=== PATIENT | male | born 1965 | race Two or more races ===

== ENCOUNTER 2018-03-07 09:48 | Outpatient (CLI) | payer OTHER | END 2018-03-07 09:55 | disposition home or self-care (01) | LOC: SONOGRAMA 09:48 | DX: E03.8 Other specified hypothyroidism (principal) ==

== ENCOUNTER 2018-03-17 08:54 | Outpatient (CLI) | payer OTHER | END 2018-03-17 09:28 | disposition home or self-care (01) | LOC: LAB 08:54 | DX: E03.8 Other specified hypothyroidism (principal) ==

== ENCOUNTER → 2018-06-16 08:45 | Outpatient (CLI) | payer OTHER | END | disposition home or self-care (01) | LOC: LAB 08:45 | DX: E03.8 Other specified hypothyroidism (principal) ==

== ENCOUNTER 2018-10-13 11:37 | Outpatient (CLI) | payer OTHER | END 2018-10-13 11:57 | disposition home or self-care (01) | LOC: LAB 11:37 | DX: E11.65 Type 2 diabetes mellitus with hyperglycemia (principal); N39.0 Urinary tract infection, site not specified ==

== ENCOUNTER 2018-11-24 08:06 | Outpatient (CLI) | payer OTHER | END 2018-11-24 09:05 | disposition home or self-care (01) | LOC: LAB 08:06 | DX: E03.8 Other specified hypothyroidism (principal); E11.69 Type 2 diabetes mellitus with other specified complication; E78.3 Hyperchylomicronemia ==

== ENCOUNTER 2019-06-15 08:47 | Outpatient (CLI) | payer OTHER | END 2019-06-15 08:59 | disposition home or self-care (01) | LOC: LAB 08:47 | DX: E03.8 Other specified hypothyroidism (principal); E78.2 Mixed hyperlipidemia; E11.65 Type 2 diabetes mellitus with hyperglycemia ==

== ENCOUNTER 2019-08-31 08:42 | Outpatient (CLI) | payer OTHER | END 2019-08-31 08:57 | disposition home or self-care (01) | LOC: LAB 08:42 | DX: E11.21 Type 2 diabetes mellitus with diabetic nephropathy (principal); E11.65 Type 2 diabetes mellitus with hyperglycemia; E03.8 Other specified hypothyroidism ==

== ENCOUNTER 2019-11-18 10:42 | Outpatient (CLI) | payer OTHER | END 2019-11-18 10:50 | disposition home or self-care (01) | LOC: LAB 10:42 | DX: N39.0 Urinary tract infection, site not specified (principal); E78.2 Mixed hyperlipidemia; E11.9 Type 2 diabetes mellitus without complications; E11.65 Type 2 diabetes mellitus with hyperglycemia; E03.8 Other specified hypothyroidism ==

== ENCOUNTER → 2020-06-12 | Outpatient (CLI) | payer OTHER | END | disposition home or self-care (01) | LOC: LAB 11:08 | PROVIDERS: ATTEND Specialist | DX: E11.65 Type 2 diabetes mellitus with hyperglycemia (principal); E11.21 Type 2 diabetes mellitus with diabetic nephropathy; E78.2 Mixed hyperlipidemia; N40.1 Benign prostatic hyperplasia with lower urinary tract symptoms ==

== ENCOUNTER → 2020-09-12 10:20 | Outpatient (CLI) | payer OTHER | END | disposition home or self-care (01) | LOC: LAB 10:20 | PROVIDERS: ATTEND Specialist | DX: E03.8 Other specified hypothyroidism (principal); D64.89 Other specified anemias; E78.2 Mixed hyperlipidemia ==

== ENCOUNTER 2020-11-30 11:03 | Outpatient (CLI) | payer OTHER | END 2020-11-30 11:16 | disposition home or self-care (01) | LOC: LAB 11:03 | PROVIDERS: ATTEND Specialist | DX: E11.65 Type 2 diabetes mellitus with hyperglycemia (principal); D64.89 Other specified anemias; E78.2 Mixed hyperlipidemia; E03.8 Other specified hypothyroidism; D68.8 Other specified coagulation defects; E11.21 Type 2 diabetes mellitus with diabetic nephropathy; N39.0 Urinary tract infection, site not specified ==

== ENCOUNTER 2021-02-03 11:01 | Emergency (ER) | payer OTHER ==
[~2021-02-03] VITALS: Ht 180.3 cm; Wt 116.1 kg
[2021-02-03] MEDS ORDERED: SYNTHROID75 MCG PO (11:25)
[2021-02-03] MEDS ORDERED: TOPROL XL25 M1 PO (11:25)
[2021-02-03] MEDS ORDERED: MEDROLPACK PO (14:47)
[2021-02-03] MEDS ORDERED: CLEOCIN HCL300 MG PO (14:47)
== END 2021-02-03 14:53 | disposition home or self-care (01) ==
LOC: ER 11:01
DX: G51.0 Bell's palsy (principal)

== ENCOUNTER → 2021-02-10 12:18 | Outpatient (CLI) | payer OTHER ==
[~2021-02-10 12:18] MED LIST: CLEOCIN HCL300 MG PO; MEDROLPACK PO; SYNTHROID75 MCG PO; TOPROL XL25 M1 PO
== END | disposition home or self-care (01) ==
LOC: LAB 12:18
PROVIDERS: ATTEND Physical Medicine & Rehabilitation
DX: R05 Cough (principal); R50.9 Fever, unspecified; R06.1 Stridor; R06.02 Shortness of breath; M35.89 Other specified systemic involvement of connective tissue; M35.81 Multisystem inflammatory syndrome; J12.82 Pneumonia due to coronavirus disease 2019; Z11.52 Encounter for screening for COVID-19; Z20.822 Contact with and (suspected) exposure to COVID-19; Z03.818 Encounter for observation for suspected exposure to other biological agents ruled out

== ENCOUNTER 2021-02-16 14:46 | Outpatient (CLI) | payer OTHER | END 2021-02-16 16:14 | disposition home or self-care (01) | LOC: OFIC 805 14:46 | PROVIDERS: ATTEND Otolaryngology Otology & Neurotology | DX: G83.89 Other specified paralytic syndromes (principal); I10 Essential (primary) hypertension ==

== ENCOUNTER 2021-02-17 12:50 | Outpatient (CLI) | payer OTHER | END 2021-02-17 13:07 | disposition home or self-care (01) | LOC: RAD 12:50 | PROVIDERS: ATTEND Specialist | DX: J45.998 Other asthma (principal) ==

== ENCOUNTER 2021-02-19 10:03 | Outpatient (CLI) | payer OTHER | END 2021-02-19 15:00 | disposition home or self-care (01) | LOC: LAB 10:03 | PROVIDERS: ATTEND Specialist | DX: E03.1 Congenital hypothyroidism without goiter (principal); E11.65 Type 2 diabetes mellitus with hyperglycemia; N40.1 Benign prostatic hyperplasia with lower urinary tract symptoms; D64.89 Other specified anemias; D68.8 Other specified coagulation defects; Z12.11 Encounter for screening for malignant neoplasm of colon ==

== ENCOUNTER 2021-02-20 11:08 | Outpatient (CLI) | payer OTHER | END 2021-02-20 15:00 | disposition home or self-care (01) | LOC: LAB 11:08 | PROVIDERS: ATTEND Specialist | DX: E03.1 Congenital hypothyroidism without goiter (principal); E11.65 Type 2 diabetes mellitus with hyperglycemia; N40.1 Benign prostatic hyperplasia with lower urinary tract symptoms; D64.89 Other specified anemias; D68.8 Other specified coagulation defects; Z12.11 Encounter for screening for malignant neoplasm of colon ==

== ENCOUNTER 2021-06-04 10:48 | Outpatient (CLI) | payer OTHER | END 2021-06-04 11:00 | disposition home or self-care (01) | LOC: LAB 10:48 | PROVIDERS: ATTEND Specialist | DX: E05.80 Other thyrotoxicosis without thyrotoxic crisis or storm (principal); E89.0 Postprocedural hypothyroidism; E11.65 Type 2 diabetes mellitus with hyperglycemia; E11.21 Type 2 diabetes mellitus with diabetic nephropathy ==

== ENCOUNTER 2021-09-18 10:50 | Outpatient (CLI) | payer OTHER | END 2021-09-18 10:54 | disposition home or self-care (01) | LOC: LAB 10:50 | PROVIDERS: ATTEND Specialist | DX: E11.65 Type 2 diabetes mellitus with hyperglycemia (principal); K75.81 Nonalcoholic steatohepatitis (NASH); E11.21 Type 2 diabetes mellitus with diabetic nephropathy; E78.2 Mixed hyperlipidemia ==

== ENCOUNTER 2021-10-22 07:17 | Outpatient (CLI) | payer OTHER | END 2021-10-22 07:18 | disposition home or self-care (01) | LOC: NUCLEAR 07:17 | PROVIDERS: ATTEND Internal Medicine Cardiovascular Disease | DX: I25.10 Atherosclerotic heart disease of native coronary artery without angina pectoris (principal); R07.89 Other chest pain; I50.1 Left ventricular failure, unspecified ==

== ENCOUNTER 2021-12-21 09:59 | Outpatient (CLI) | payer OTHER | END 2021-12-21 14:09 | disposition home or self-care (01) | LOC: LAB 09:59 | PROVIDERS: ATTEND Specialist | DX: E03.9 Hypothyroidism, unspecified (principal); E11.21 Type 2 diabetes mellitus with diabetic nephropathy; N39.0 Urinary tract infection, site not specified; N40.1 Benign prostatic hyperplasia with lower urinary tract symptoms; N40.0 Benign prostatic hyperplasia without lower urinary tract symptoms; E78.2 Mixed hyperlipidemia; E11.65 Type 2 diabetes mellitus with hyperglycemia; Z12.11 Encounter for screening for malignant neoplasm of colon; D64.9 Anemia, unspecified; I10 Essential (primary) hypertension; E11.9 Type 2 diabetes mellitus without complications ==

== ENCOUNTER 2021-12-24 10:26 | Outpatient (CLI) | payer OTHER | END 2021-12-24 10:27 | disposition home or self-care (01) | LOC: LAB 10:26 | PROVIDERS: ATTEND Specialist | DX: E03.9 Hypothyroidism, unspecified (principal); E11.21 Type 2 diabetes mellitus with diabetic nephropathy; N39.9 Disorder of urinary system, unspecified; N40.1 Benign prostatic hyperplasia with lower urinary tract symptoms; N40.0 Benign prostatic hyperplasia without lower urinary tract symptoms; E78.2 Mixed hyperlipidemia; E11.65 Type 2 diabetes mellitus with hyperglycemia; Z12.11 Encounter for screening for malignant neoplasm of colon; D64.9 Anemia, unspecified ==

== ENCOUNTER 2022-04-05 09:47 | Outpatient (CLI) | payer OTHER | END 2022-04-05 09:48 | disposition home or self-care (01) | LOC: LAB 09:47 | PROVIDERS: ATTEND Specialist | DX: E03.9 Hypothyroidism, unspecified (principal); E78.2 Mixed hyperlipidemia; E11.65 Type 2 diabetes mellitus with hyperglycemia; N25.81 Secondary hyperparathyroidism of renal origin; Z12.5 Encounter for screening for malignant neoplasm of prostate; I11.9 Hypertensive heart disease without heart failure; D50.9 Iron deficiency anemia, unspecified; Z12.11 Encounter for screening for malignant neoplasm of colon; E11.51 Type 2 diabetes mellitus with diabetic peripheral angiopathy without gangrene ==

== ENCOUNTER 2022-07-15 08:53 | Outpatient (CLI) | payer OTHER | END 2022-07-15 08:54 | disposition home or self-care (01) | LOC: LAB 08:53 | PROVIDERS: ATTEND Specialist | DX: E03.9 Hypothyroidism, unspecified (principal); D64.9 Anemia, unspecified; E11.65 Type 2 diabetes mellitus with hyperglycemia; E11.21 Type 2 diabetes mellitus with diabetic nephropathy; E78.2 Mixed hyperlipidemia; D55.0 Anemia due to glucose-6-phosphate dehydrogenase [G6PD] deficiency ==

== ENCOUNTER → 2022-12-10 09:23 | Outpatient (CLI) | payer OTHER | END | disposition home or self-care (01) | LOC: LAB 09:23 | PROVIDERS: ATTEND Specialist | DX: E03.9 Hypothyroidism, unspecified (principal); E11.21 Type 2 diabetes mellitus with diabetic nephropathy; N39.9 Disorder of urinary system, unspecified; E78.2 Mixed hyperlipidemia; E11.65 Type 2 diabetes mellitus with hyperglycemia; D64.9 Anemia, unspecified; K75.81 Nonalcoholic steatohepatitis (NASH); N25.81 Secondary hyperparathyroidism of renal origin ==

== ENCOUNTER 2023-04-07 07:45 | Outpatient (CLI) | payer OTHER | END 2023-04-07 07:50 | disposition home or self-care (01) | LOC: LAB 07:45 | PROVIDERS: ATTEND Specialist | DX: E11.21 Type 2 diabetes mellitus with diabetic nephropathy (principal); Z13.220 Encounter for screening for lipoid disorders; N39.9 Disorder of urinary system, unspecified; M00.89 Polyarthritis due to other bacteria; N25.81 Secondary hyperparathyroidism of renal origin; Z12.5 Encounter for screening for malignant neoplasm of prostate; D64.89 Other specified anemias; R07.89 Other chest pain; E11.69 Type 2 diabetes mellitus with other specified complication; E03.8 Other specified hypothyroidism ==

== ENCOUNTER → 2023-05-19 08:11 | Outpatient (CLI) | payer OTHER | END | disposition home or self-care (01) | LOC: NUCLEAR 08:00 | PROVIDERS: ATTEND Internal Medicine Cardiovascular Disease | DX: I35.0 Nonrheumatic aortic (valve) stenosis (principal); Q25.6 Stenosis of pulmonary artery; Q25.0 Patent ductus arteriosus ==

== ENCOUNTER → 2023-06-03 09:22 | Outpatient (CLI) | payer OTHER | END | disposition home or self-care (01) | LOC: LAB 09:22 | PROVIDERS: ATTEND Internal Medicine Endocrinology, Diabetes & Metabolism | DX: E03.8 Other specified hypothyroidism (principal) ==

== ENCOUNTER 2023-06-19 09:54 | Outpatient (CLI) | payer OTHER | END 2023-06-19 09:56 | disposition home or self-care (01) | LOC: LAB 09:54 | PROVIDERS: ATTEND Specialist | DX: R07.89 Other chest pain (principal); E03.8 Other specified hypothyroidism; E11.69 Type 2 diabetes mellitus with other specified complication; E11.21 Type 2 diabetes mellitus with diabetic nephropathy; N25.81 Secondary hyperparathyroidism of renal origin; Z13.220 Encounter for screening for lipoid disorders; N39.9 Disorder of urinary system, unspecified; D64.89 Other specified anemias ==

== ENCOUNTER 2023-09-14 09:29 | Outpatient (CLI) | payer OTHER ==
[2023-09-14 10:35] LABS: HEMATOCRIT 46.8 % (39.0-48.0); HEMOGLOBIN 15.6 g/dL (13-16.00); MEAN CELL VOLUME 80.1 fL (80.0-100.00); MEAN CORPUSCULAR HEMOGLOBIN 26.7 pg (27.00-32.0); MEAN CORPUSCULAR HGB CONC 33.3 g/dl (32.0-36.0); PLATELET COUNT 216 K/uL (150-450); RED BLOOD COUNT 5.84 M/uL (4.00-6.00); RED CELL DISTRIBUTION WIDTH 14.7 % (11.5-14.5)
[2023-09-14 11:10] LABS: ALBUMIN 4.2 gm/dL (3.4-5.0); ALKALINE PHOSPHATASE 70 U/L (50-136); ALT/SGPT 36 U/L (12-78); ANION GAP 11 (10.0-20.0); AST/SGOT 19 U/L (15-37); BILIRUBIN TOTAL 0.46 mg/dL (0.3-1.2); BLOOD UREA NITROGEN 15 mg/dL (7-18); BUN CREA RATIO 15 (7.0-25.0); CALCIUM 9.8 mg/dL (8.5-10.1); CARBON DIOXIDE 29 mEq/L (21-32); CHLORIDE 98 mmol/L (98-107); CHOL HDL RATIO 4.9 (0-5.0); CHOLESTEROL 178 mg/dL (0-200); FREE TRIODOTIRONINE 2.59 pg/ml (2.18-3.98); GFR 77.02; GLOBULINA 4.2 G/DL (2.4-3.5); HDL 36 mg/dl (40-60); POTASSIUM 3.52 mEq/L (3.5-5.1); SODIUM 134 mmol/L (136-145); TOTAL PROTEIN 8.4 gm/dL (6.4-8.2); TSH 0.519 uIU/mL (0.358-3.74)
[2023-09-14 11:16] LABS: C-REACTIVE PROTEIN < 0.29 MG/DL (0.00-0.29); GLUCOSE FASTING 208 mg/dL (65-100); LDL 78 mg/dl (0-130); OSMOLALITY SERUM 275 MOSM/KG (275-295); T4 FREE 1.48 NG/ML (0.76-1.46); VLDL 64 (0-39)
[2023-09-14 11:17] LABS: PH,URINE 5.5 (5.0-8.0); URINE APPEARANCE Clear; URINE BILIRRUBIN Negative (NEGATIVE); URINE BLOOD Negative; URINE COLOR Yellow; URINE LEUKOCYTE Negative; URINE NITRATE Negative; URINE PROTEIN Negative (NEGATIVE); URINE UROBILINOGEN 0.2 E.U./dl
[2023-09-14 11:18] LABS: URINE BACTERIA 8.8 uL (0.0-1933); URINE EPITHELIAL CELLS 2.6 uL (0.0-38.8)
[2023-09-14 11:42] LABS: URINE GLUCOSE >=1000 MG/DL (NEGATIVE); URINE RBC 0.7 uL (0.0-20.8); URINE WBC 0.7 uL (0.0-23.2)
[2023-09-14 12:13] LABS: TRIGLYCERIDES 321 mg/dL (0-150)
== END 2023-09-14 14:25 | disposition home or self-care (01) ==
LOC: LAB 09:29
PROVIDERS: ATTEND Specialist
DX: E11.21 Type 2 diabetes mellitus with diabetic nephropathy (principal); Z13.220 Encounter for screening for lipoid disorders; N25.81 Secondary hyperparathyroidism of renal origin; E11.69 Type 2 diabetes mellitus with other specified complication; E03.8 Other specified hypothyroidism; N39.9 Disorder of urinary system, unspecified; D64.89 Other specified anemias; M00.80 Arthritis due to other bacteria, unspecified joint

== ENCOUNTER → 2023-11-18 10:44 | Outpatient (CLI) | payer OTHER ==
[2023-11-18 12:26] LABS: URINE APPEARANCE Clear; URINE BILIRRUBIN Negative (NEGATIVE); URINE BLOOD Negative; URINE COLOR Yellow; URINE LEUKOCYTE Negative; URINE NITRATE Negative; URINE PROTEIN Negative (NEGATIVE); URINE UROBILINOGEN 0.2 E.U./dl
[2023-11-18 12:29] LABS: URINE BACTERIA 0 uL (0.0-1933); URINE EPITHELIAL CELLS 0.6 uL (0.0-38.8); URINE GLUCOSE >=1000 MG/DL (NEGATIVE); URINE RBC 0.7 uL (0.0-20.8); URINE WBC 0.9 uL (0.0-23.2)
[2023-11-18 12:39] LABS: HEMATOCRIT 44.4 % (39.0-48.0); HEMOGLOBIN 14.9 g/dL (13-16.00); MEAN CELL VOLUME 79.3 fL (80.0-100.00); MEAN CORPUSCULAR HEMOGLOBIN 26.6 pg (27.00-32.0); MEAN CORPUSCULAR HGB CONC 33.5 g/dl (32.0-36.0); PLATELET COUNT 213 K/uL (150-450); RED CELL DISTRIBUTION WIDTH 14.5 % (11.5-14.5)
[2023-11-18 13:12] LABS: ALBUMIN 4.2 gm/dL (3.4-5.0); ALKALINE PHOSPHATASE 58 U/L (50-136); ALT/SGPT 39 U/L (12-78); ANION GAP 9 (10.0-20.0); AST/SGOT 26 U/L (15-37); BILIRUBIN TOTAL 0.53 mg/dL (0.3-1.2); BILIRUBIN,CONJUGATED 0.13 mg/dL (0.0-0.2); BLOOD UREA NITROGEN 15 mg/dL (7-18); BUN CREA RATIO 17 (7.0-25.0); CALCIUM 10.1 mg/dL (8.5-10.1); CARBON DIOXIDE 32 mEq/L (21-32); CHLORIDE 98 mmol/L (98-107); CREATININE SERUM 0.88 mg/dL (0.70-1.30); FREE TRIODOTIRONINE 2.87 pg/ml (2.18-3.98); GFR 89.26; GLOBULINA 3.8 G/DL (2.4-3.5); GLUCOSE FASTING 185 mg/dL (65-100); OSMOLALITY SERUM 274 MOSM/KG (275-295); POTASSIUM 4.52 mEq/L (3.5-5.1); SODIUM 134 mmol/L (136-145)
[2023-11-18 13:32] LABS: C-REACTIVE PROTEIN < 0.29 MG/DL (0.00-0.29)
[2023-11-18 13:33] LABS: T4 FREE 1.65 NG/ML (0.76-1.46); TSH 0.086 uIU/mL (0.358-3.74)
== END | disposition home or self-care (01) ==
LOC: LAB 10:44
PROVIDERS: ATTEND Specialist
DX: E03.9 Hypothyroidism, unspecified (principal); E11.21 Type 2 diabetes mellitus with diabetic nephropathy; E11.65 Type 2 diabetes mellitus with hyperglycemia; D64.9 Anemia, unspecified; J45.998 Other asthma

== ENCOUNTER → 2024-03-30 09:07 | Outpatient (CLI) | payer OTHER ==
[2024-03-30 10:54] LABS: URINE APPEARANCE Clear; URINE BILIRRUBIN Negative (NEGATIVE); URINE BLOOD Negative; URINE COLOR Yellow; URINE LEUKOCYTE Negative; URINE NITRATE Negative; URINE PROTEIN Negative (NEGATIVE); URINE UROBILINOGEN 0.2 E.U./dl
[2024-03-30 10:58] LABS: URINE BACTERIA 6.2 uL (0.0-1933)
[2024-03-30 11:00] LABS: URINE EPITHELIAL CELLS 1.2 uL (0.0-38.8); URINE GLUCOSE >=1000 MG/DL (NEGATIVE); URINE RBC 0.1 uL (0.0-20.8); URINE WBC 0.9 uL (0.0-23.2)
[2024-03-30 11:49] LABS: HEMATOCRIT 42.9 % (39.0-48.0); HEMOGLOBIN 14.1 g/dL (13-16.00); MEAN CELL VOLUME 80.8 fL (80.0-100.00); MEAN CORPUSCULAR HEMOGLOBIN 26.5 pg (27.00-32.0); MEAN CORPUSCULAR HGB CONC 32.8 g/dl (32.0-36.0); PLATELET COUNT 186 K/uL (150-450); RED CELL DISTRIBUTION WIDTH 15.6 % (11.5-14.5)
[2024-03-30 11:59] LABS: ALBUMIN 3.6 gm/dL (3.4-5.0); ALKALINE PHOSPHATASE 65 U/L (50-136); ALT/SGPT 29 U/L (12-78); ANION GAP 10 (10.0-20.0); AST/SGOT 23 U/L (15-37); BILIRUBIN TOTAL 0.37 mg/dL (0.3-1.2); BLOOD UREA NITROGEN 10 mg/dL (7-18); BUN CREA RATIO 10 (7.0-25.0); CALCIUM 8.6 mg/dL (8.5-10.1); CARBON DIOXIDE 27 mEq/L (21-32); CHLORIDE 103 mmol/L (98-107); CHOL HDL RATIO 7.2 (0-5.0); FREE TRIODOTIRONINE 0.99 pg/ml (2.18-3.98); GFR 76.75; GLOBULINA 3.8 G/DL (2.4-3.5); HDL 36 mg/dl (40-60); LDL 61 mg/dl (0-130); OSMOLALITY SERUM 279 MOSM/KG (275-295); POTASSIUM 4.12 mEq/L (3.5-5.1); SODIUM 136 mmol/L (136-145); T4 FREE 0.43 NG/ML (0.76-1.46); TOTAL PROTEIN 7.4 gm/dL (6.4-8.2); VLDL 161 (0-39)
[2024-03-30 12:00] LABS: C-REACTIVE PROTEIN < 0.29 MG/DL (0.00-0.29); CHOLESTEROL 259 mg/dL (0-200); GLUCOSE FASTING 243 mg/dL (65-100); TRIGLYCERIDES 809 mg/dL (0-150)
== END | disposition home or self-care (01) ==
LOC: LAB 09:07
PROVIDERS: ATTEND Specialist
DX: E03.8 Other specified hypothyroidism (principal); E11.69 Type 2 diabetes mellitus with other specified complication; Z13.220 Encounter for screening for lipoid disorders; M00.80 Arthritis due to other bacteria, unspecified joint; N39.9 Disorder of urinary system, unspecified; D64.89 Other specified anemias

== ENCOUNTER 2024-10-26 09:23 | Outpatient (CLI) | payer OTHER ==
[2024-10-26 11:19] LABS: HEMOGLOBIN 15.1 g/dL (13-16.00); MEAN CELL VOLUME 80.8 fL (80.0-100.00); MEAN CORPUSCULAR HEMOGLOBIN 27.2 pg (27.00-32.0); MEAN CORPUSCULAR HGB CONC 33.7 g/dl (32.0-36.0); PLATELET COUNT 237 K/uL (150-450); RED BLOOD COUNT 5.56 M/uL (4.00-6.00); RED CELL DISTRIBUTION WIDTH 15.6 % (11.5-14.5)
[2024-10-26 11:34] LABS: URINE APPEARANCE Clear; URINE BILIRRUBIN Negative (NEGATIVE); URINE BLOOD Negative; URINE COLOR Yellow; URINE KETONE Trace (NEGATIVE); URINE LEUKOCYTE Negative; URINE NITRATE Negative; URINE PROTEIN Negative (NEGATIVE); URINE UROBILINOGEN 0.2 E.U./dl
[2024-10-26 11:43] LABS: URINE BACTERIA 2.4 uL (0.0-1933); URINE CAST 0.14 uL (0.0-1.40); URINE EPITHELIAL CELLS 0.9 uL (0.0-38.8); URINE GLUCOSE >=1000 MG/DL (NEGATIVE); URINE RBC 0.4 uL (0.0-20.8); URINE WBC 0.3 uL (0.0-23.2)
[2024-10-26 12:12] LABS: ALBUMIN 4.1 gm/dL (3.4-5.0); BILIRUBIN TOTAL 0.62 mg/dL (0.3-1.2); CALCIUM 9.9 mg/dL (8.5-10.1); CREATININE SERUM 0.9 mg/dL (0.70-1.30); FREE TRIODOTIRONINE 2.42 pg/ml (2.18-3.98); GFR 86.67; GLOBULINA 4.2 G/DL (2.4-3.5); POTASSIUM 4.25 mEq/L (3.5-5.1); PROSTATIC SPECIFIC ANTIGEN 0.495 NG/ML (0.010-4.00); T4 FREE 1.14 NG/ML (0.76-1.46); TOTAL PROTEIN 8.3 gm/dL (6.4-8.2); TSH 2.03 uIU/mL (0.358-3.74)
[2024-10-26 12:13] LABS: CHOL HDL RATIO 8.6 (0-5.0)
== END 2024-10-26 09:32 | disposition home or self-care (01) ==
LOC: LAB 09:23
PROVIDERS: ATTEND Specialist
DX: E03.9 Hypothyroidism, unspecified (principal); E11.21 Type 2 diabetes mellitus with diabetic nephropathy; N39.9 Disorder of urinary system, unspecified; N40.1 Benign prostatic hyperplasia with lower urinary tract symptoms; E11.65 Type 2 diabetes mellitus with hyperglycemia; D64.9 Anemia, unspecified

== ENCOUNTER 2024-12-27 10:00 | Outpatient (CLI) | payer OTHER ==
[2024-12-27 10:46] LABS: URINE APPEARANCE Clear; URINE BILIRRUBIN Negative (NEGATIVE); URINE BLOOD Negative; URINE COLOR Yellow; URINE KETONE 15 (NEGATIVE); URINE LEUKOCYTE Negative; URINE NITRATE Negative; URINE PROTEIN Negative (NEGATIVE); URINE UROBILINOGEN 0.2 E.U./dl
[2024-12-27 10:48] LABS: URINE BACTERIA 3.6 uL (0.0-1933); URINE CAST 0.29 uL (0.0-1.40); URINE EPITHELIAL CELLS 1.1 uL (0.0-38.8); URINE GLUCOSE >=1000 MG/DL (NEGATIVE); URINE RBC 0.4 uL (0.0-20.8); URINE WBC 1.1 uL (0.0-23.2)
[2024-12-27 11:25] LABS: CALCIUM 9.9 mg/dL (8.5-10.1); CREATININE SERUM 0.82 mg/dL (0.70-1.30); GFR 96.5; POTASSIUM 4.48 mEq/L (3.5-5.1)
== END 2024-12-27 10:01 | disposition home or self-care (01) ==
LOC: LAB 10:00
PROVIDERS: ATTEND Specialist
DX: E11.21 Type 2 diabetes mellitus with diabetic nephropathy (principal); N39.9 Disorder of urinary system, unspecified

== ENCOUNTER → 2025-06-28 09:07 | Outpatient (CLI) | payer OTHER ==
[2025-06-28 10:23] LABS: URINE APPEARANCE Clear; URINE BILIRRUBIN Negative (NEGATIVE); URINE BLOOD Negative; URINE COLOR Yellow; URINE KETONE Trace (NEGATIVE); URINE LEUKOCYTE Negative; URINE NITRATE Negative; URINE PROTEIN Negative (NEGATIVE); URINE UROBILINOGEN 0.2 E.U./dl
[2025-06-28 10:32] LABS: URINE BACTERIA 1.1 uL (0.0-1933); URINE CAST 0.00 uL (0.0-1.40); URINE EPITHELIAL CELLS 1.3 uL (0.0-38.8); URINE GLUCOSE >=1000 MG/DL (NEGATIVE); URINE RBC 0.4 uL (0.0-20.8); URINE WBC 1.3 uL (0.0-23.2)
[2025-06-28 11:41] LABS: ALT/SGPT 30.0 U/L (12-78); AST/SGOT 17.0 U/L (15-37); BILIRUBIN TOTAL 0.62 mg/dL (0.3-1.2); BUN CREA RATIO 14.0 (7.0-25.0); CHOL HDL RATIO 4.7 (0-5.0); CREATININE SERUM 0.8 mg/dL (0.70-1.30); GFR 98.94; GLOBULINA 3.8 G/DL (2.4-3.5); GLUCOSE FASTING 186.0 mg/dL (65-100); HDL 36.0 mg/dl (40-60); OSMOLALITY SERUM 284.0 MOSM/KG (275-295)
[2025-06-28 12:19] LABS: LDL 87.0 mg/dl (0-130); VLDL 44.0 (0-39)
[2025-06-28 12:20] LABS: TSH 5.66 uIU/mL (0.358-3.74)
== END | disposition home or self-care (01) ==
LOC: LAB 09:07
PROVIDERS: ATTEND Specialist
DX: E03.9 Hypothyroidism, unspecified (principal); N39.9 Disorder of urinary system, unspecified; E78.2 Mixed hyperlipidemia; E11.65 Type 2 diabetes mellitus with hyperglycemia; E55.9 Vitamin D deficiency, unspecified